=== PATIENT | female | born 1955 | race Caucasian/White ===

== ENCOUNTER 2019-10-08 15:56 | Emergency (ER) | payer SELFPAY | END 2019-10-08 16:09 | disposition home or self-care (01) | LOC: ER 16:09 | PROVIDERS: Family Provider Radiology Diagnostic Radiology | DX: Z01.89 Encounter for other specified special examinations (principal) ==

== ENCOUNTER → 2019-10-12 08:57 | Outpatient (BNVA) | payer SELFPAY | PROVIDERS: Family Provider Radiology Diagnostic Radiology; Visit Provider Otolaryngology | DX: H81.10 Benign paroxysmal vertigo, unspecified ear (principal) | CPT/HCPCS: 99203 ==

== ENCOUNTER 2019-10-12 11:49 | Outpatient (RCR) | payer SELFPAY | END 2019-11-06 23:59 | disposition home or self-care (01) | LOC: SPT 11:49 | PROVIDERS: Family Provider Radiology Diagnostic Radiology; Referring Provider Otolaryngology; Visit Provider Otolaryngology | DX: R42 Dizziness and giddiness (principal) | CPT/HCPCS: 95992; 97162 ==

== ENCOUNTER 2019-11-23 10:25 | Emergency (ER) | payer SELFPAY ==
[2019-11-23] VITALS (12 sets, daily range): BP systolic 102–128; BP diastolic 41–77; PULSE 66–80; RESP 16–18; TEMP 36.6; O2SAT 93–98
--- NOTE | 2019-11-23 10:43 | US_ITS ---
WS: [id number] RIGHT UPPER QUADRANT ULTRASOUND HISTORY: RIGHT upper quadrant pain. COMPARISON: 01/13/2018 Liver: 14.3 cm in length. Mild coarsened echotexture with no bile duct dilatation or mass. Gallbladder: Normally distended gallbladder with no stones or wall thickening. CBD: 0.2 cm Pancreas: Normal size and echogenicity. Right kidney: 10.0 cm in length. Normal echogenicity with no mass or hydronephrosis. Aorta and IVC: Unremarkable. No ascites. US/US gall bladder [id number] IMPRESSION: 1. Normal gallbladder. 2. Mild hepatic steatosis.
--- NOTE | 2019-11-23 10:43 | XR_ITS ---
WS: [id number] PORTABLE CHEST HISTORY: dyspnea/cough COMPARISON: 01/16/2018 Lungs are clear and well expanded. No pleural effusion or pneumothorax. Cardiac size: Normal. Mediastinum/Aorta: Normal mediastinum. No osseous abnormality seen. XR/XR chest 1V portable [id number] IMPRESSION: Unremarkable portable chest.
--- NOTE | 2019-11-23 10:47 | W.ED.NAVMDI ---
Documented by User: Demarcus Chiu DO 11/24/19 09:22 HPI - Nausea/Vomiting/Diarrhea General: Chief complaint: Nausea/Vomiting/Diarrhea Stated complaint: N/V/D Time Seen by Provider: 11/23/19 10:37 History of Present Illness: HPI Narrative: 63-year-old female comes in complaining of abdominal pain with nausea vomiting and diarrhea for the last couple of days. She denies any fever sweats chills denies any difficulty with breathing she denies any dysuria urgency or frequency is not any hematochezia melena hematemesis or coffee-ground emesis. Localizes the pain to the epigastrium radiating to the right upper quadrant. Patient has worsening of symptoms when she eats. MD elicited complaint: nausea, vomiting and diarrhea Pertinent past history: abdominal surgery Onset (ago): day(s) Description of vomiting: bilious Associated nausea: Yes Location of pain: RUQ Radiation: RUQ and epigastric Quality: aching Exacerbating factors: eating Relieving factors: none Associated symtoms: Reports nausea; Denies bloating, chest pain, dysuria, fatigue or malaise Review of Systems Const: Denies: fever, chills, body aches, change in appetite, fatigue or malaise ENMT: Denies: throat pain, ear pain, nasal discharge or nasal congestion Card: Denies: chest pain, edema, shortness of breath on exertion or shortness of breath when lying down Resp: Denies: shortness of breath or productive cough GI: Reports: abdominal pain, nausea, vomiting and diarrhea; Denies: vomiting blood, coffee grounds in vomit, constipation, bloating, blood in stool or black tarry stool : Denies: flank pain, difficulty urinating, painful urination, urinary frequency or urinary urgency Skin/Breast: Denies: rash or itching PFSH ED PFSH: Medical History BPPV (benign paroxysmal positional vertigo) Family History Father Lung disease rheumatoid arthritis related Mother Alzheimer disease Son Autoimmune disease causing clotting problems, vascular Daughter Raynaud disease Rheumatoid arteritis Social History Smoking and tobacco status: never smoked Alcohol intake: current Alcohol intake frequency: holidays/special occasions only Physical Exam Const: COMMON NORMALS: no apparent distress GENERAL APPEARANCE: cooperative and comfortable ORIENTATION/CONSCIOUSNESS: Yes awake, Yes oriented to person, Yes oriented to place and Yes oriented to time HENMT: COMMON NORMALS: normocephalic, head/scalp atraumatic, hearing grossly normal bilaterally, external ears normal, EAC's normal, TM's normal bilaterally, nasal mucous membranes and turbinates normal, moist oral mucous membranes and oropharynx normal HEAD & SCALP: normocephalic and atraumatic NOSE: nasal mucous membranes and turbinates normal EXTERNAL EAR: Yes external ears normal EXTERNAL AUDITORY CANAL: EAC's normal TYMPANIC MEMBRANE: TM's normal bilaterally Eye: COMMON NORMALS: PERRL, EOMs intact bilaterally, conjunctivae normal and no scleral icterus CONJUNCTIVA: Yes conjunctivae normal PUPIL: Yes PERRL Neck/C-Spine: COMMON NORMALS: full ROM, no lymphadenopathy, supple and no JVD Lymph: LYMPHATIC: no lymphadenopathy noted and no lymphedema noted Resp: COMMON NORMALS: normal respiratory effort, no retractions, no use of accessory muscles and clear to auscultation bilaterally AUSCULTATION: clear to auscultation bilaterally Cardio: COMMON NORMALS: no JVD, regular rate, regular rhythm and no murmurs RATE: regular rate RHYTHM: regular rhythm GI: COMMON NORMALS: soft to palpation and no hepatosplenomegaly AUSCULTATION: Yes normoactive bowel sounds PALPATION: Yes soft, Yes tender, No guarding, No rigid and Yes no hepatosplenomegaly Extremity: COMMON NORMALS: normal to inspection, normal capillary refill, no clubbing, cyanosis or edema, no calf tenderness and no pedal edema Neuro: SENSORIUM/ORIENTATION: Yes oriented to person, Yes oriented to place and Yes oriented to time Skin: COMMON NORMALS: no rashes or lesions noted GENERAL SKIN EXAM: no rashes or lesions noted Course Vital Signs: Vital signs: Vital Signs Temperature 97.8 F 11/23/19 10:30 Pulse Rate 73 11/23/19 16:56 Respiratory Rate 16 11/23/19 16:56 Blood Pressure 128/70 11/23/19 16:56 Pulse Oximetry 96 11/23/19 16:56 MDM - Nausea/Vomiting/Diarrhea MDM Narrative: Medical decision making narrative: Patient initially seen by myself and labs ordered at change of shift care was transferred to Dr. Hoffmann. Please see her notes for final assessment disposition on this patient. Lab Data: Labs: Lab Results 11/23/19 11/23/19 11/23/19 Range/Units 11:02 11:02 12:32 WBC 5.2 (4.0-10.0) 10^3/ uL RBC 5.20 (4.1-5.3) 10^6/u L Hgb 13.5 (11.5-15.3) g/dL Hct 45.0 (37.0-47.0) % MCV 86.5 (81-99) fL MCH 26.0 L (28.0-34.0) pg MCHC 30.0 (30.0-36.0) g/dL RDW 13.3 (12.1-15.1) % Plt Count 320 (130-400) 10^3/c mm MPV 10.5 H (7.4-10.4) fL Neut % (Auto) 72.3 % Lymph % (Auto) 22.3 % [place] % (Auto) 4.2 % Eos % (Auto) 0.4 % Baso % (Auto) 0.6 % Neut # (Auto) 3.8 (1.8-7.7) 10^3/u L Lymph # (Auto) 1.2 (0.8-4.8) 10^3/u L [place] # (Auto) 0.2 (0.2-0.9) 10^3/u L Eos # (Auto) 0.0 (0.0-0.8) 10^3/u L Baso # (Auto) 0.0 (0.0-0.1) 10^3/u L Nucleated RBC % (a uto) 0 % Nucleated RBCs # 0.0 /100WBC Sodium 142 (136-145) mmol/L Potassium 3.6 (3.5-5.1) mmol/L Chloride 104 (98-107) mmol/L Carbon Dioxide 23 (22-29) mmol/L Anion Gap 18.6 (5-19) BUN 19 (8-23) mg/dL Creatinine 0.9 (0.5-0.9) mg/dL GFR Calculation 63.7 L (90-130) mL/min Glucose 118 H (65-115) mg/dL Calculated Osmolal ity 292 (285-295) mOsm/k g Calcium 10.1 (8.5-10.5) mg/dL Total Bilirubin 0.4 (0.15-1.2) mg/dL AST 22 (0-32) U/L ALT 27 (0-33) U/L Alkaline Phosphata se 125 H (35-105) IU/L Total Protein 6.8 (6.6-8.7) g/dL Albumin 4.5 (3.5-5.2) g/dL Globulin 2.3 (1.3-4.6) g/dL Lipase 10 L (13-60) U/L Urine Color Yellow (Yellow) Urine Appearance Clear (CLEAR) Urine pH 5 (5-7) Ur Specific Gravit y 1.025 (1.005-1.030) Urine Protein Neg (Negative) Urine Glucose (UA) Norm (Normal) Urine Ketones 1+ H (Negative) Urine Blood Neg (Negative) Urine Nitrate Negative (Negative) Urine Bilirubin Neg (NEGATIVE) Urine Urobilinogen Norm (Negative) mg/dL Ur Leukocyte Elis ase Negative (Negative) Discharge Plan Discharge Patient Disposition: Home, Self-Care Clinical Impression: Gastroenteritis Migraine Qualifiers: Migraine type: without aura Status migrainosus presence: without status migrainosus Intractability: not intractable Qualified Code(s): G43.009 - Migraine without aura, not intractable, without status migrainosus Condition: Stable Prescriptions: New promethazine 25 mg suppository 25 mg IL Q6H Qty: 1 RF: 0 No Action levothyroxine 88 mcg capsule 88 mcg PO DAILY RF: 0 potassium chloride 20 mEq tablet extended release 20 meq PO DAILY RF: 0 propranolol 60 mg tablet 60 mg PO DAILY RF: 0 rosuvastatin 5 mg tablet 5 mg PO DAILY RF: 0 yytqpms-vqbfdzjere-CUD-caff 69-60-696-40 mg capsule 1 cap PO Q4H MDD 6 tabs PRN (Reason: Headache) RF: 0 albuterol sulfate [ProAir HFA] 90 mcg/actuation HFA aerosol inhaler 2 puff INHALATION Q6H PRN (Reason: Shortness Of Breath) RF: 0 prednisone 10 mg Tablet 10 mg PO DAILY PRN (Reason: unknown) RF: 0 Flintstones Multivitamin Tablet,Chewable 1 tab PO DAILY RF: 0 Aspir-81 81 mg Tablet,Delayed Release (Dr/Ec) 81 mg PO DAILY RF: 0 Xanax 0.25 mg Tablet 0.25 mg PO DAILY PRN (Reason: Anxiety) RF: 0 hydrochlorothiazide 25 mg Tablet 25 mg PO DAILY RF: 0 losartan 100 mg Tablet 100 mg PO DAILY RF: 0 Macrobid 100 mg Capsule 100 mg PO BID RF: 0 Referrals: Maicol Bae MD [Family Provider] - Discharge Diet: Advance as tolerated and Clear Liquid Discharge Activity: Resume usual activity Patient Instructions: Headache - Migraine (Adult), Gastroenteritis (ED) Activity Restrictions/Additional Instructions: f/u with PCP in next 2-3 days (case management will set you up with pcp) return if worse, any problem, any change Discharge Date/Time: 11/23/19 16:56 Sign Out Sign Out Data: Patient Sign Out occurred on 11/23/19 at 12:35. Patient's care was discussed, and care was transferred from to Adele Tolliver DO. Coding Level of Care Code ED Metal Machine Operator for Chg Fwd Exam Comprehensive Documented by User: Adele Hoffmann DO 11/23/19 15:27 HPI - Nausea/Vomiting/Diarrhea General: Chief complaint: Nausea/Vomiting/Diarrhea Stated complaint: N/V/D Time Seen by Provider: 11/23/19 10:37 PFSH ED PFSH: Medical History BPPV (benign paroxysmal positional vertigo) Family History Father Lung disease rheumatoid arthritis related Mother Alzheimer disease Son Autoimmune disease causing clotting problems, vascular Daughter Raynaud disease Rheumatoid arteritis Social History Smoking and tobacco status: never smoked Alcohol intake: current Alcohol intake frequency: holidays/special occasions only Course Vital Signs: Vital signs: Vital Signs Temperature 97.8 F 11/23/19 10:30 Pulse Rate 73 11/23/19 16:56 Respiratory Rate 16 11/23/19 16:56 Blood Pressure 128/70 11/23/19 16:56 Pulse Oximetry 96 11/23/19 16:56 MDM - Nausea/Vomiting/Diarrhea MDM Narrative: Medical decision making narrative: I have accepted the pt in sign out from Dr Cihu. Dr Chiu stated he wanted a ct abd/pelvis which I have now ordered. 1342: pt states she is still having severe headache and that it woke her from sleep and that she is worried about it, I will order a ct head and give her more meds, states morphine helped some 1540: pts ct's are all normal along with her labs incluing urine and lipase ,us gb unremarkable, pt is now able to hold down some jello and water, she still has migraine and I will give her another dose of meds including morphine and phenergan and she states she thinks she will be better off if she goes home after that to rest. She knows to return if anything worsens, she will stick with a clear liquid diet and I will send her home with phenergan Lab Data: Attestation: I reviewed the patient's lab results. Labs: Lab Results 11/23/19 11/23/19 11/23/19 Range/Units 11:02 11:02 12:32 WBC 5.2 (4.0-10.0) 10^3/ uL RBC 5.20 (4.1-5.3) 10^6/u L Hgb 13.5 (11.5-15.3) g/dL Hct 45.0 (37.0-47.0) % MCV 86.5 (81-99) fL MCH 26.0 L (28.0-34.0) pg MCHC 30.0 (30.0-36.0) g/dL RDW 13.3 (12.1-15.1) % Plt Count 320 (130-400) 10^3/c mm MPV 10.5 H (7.4-10.4) fL Neut % (Auto) 72.3 % Lymph % (Auto) 22.3 % [place] % (Auto) 4.2 % Eos % (Auto) 0.4 % Baso % (Auto) 0.6 % Neut # (Auto) 3.8 (1.8-7.7) 10^3/u L Lymph # (Auto) 1.2 (0.8-4.8) 10^3/u L [place] # (Auto) 0.2 (0.2-0.9) 10^3/u L Eos # (Auto) 0.0 (0.0-0.8) 10^3/u L Baso # (Auto) 0.0 (0.0-0.1) 10^3/u L Nucleated RBC % (a uto) 0 % Nucleated RBCs # 0.0 /100WBC Sodium 142 (136-145) mmol/L Potassium 3.6 (3.5-5.1) mmol/L Chloride 104 (98-107) mmol/L Carbon Dioxide 23 (22-29) mmol/L Anion Gap 18.6 (5-19) BUN 19 (8-23) mg/dL Creatinine 0.9 (0.5-0.9) mg/dL GFR Calculation 63.7 L (90-130) mL/min Glucose 118 H (65-115) mg/dL Calculated Osmolal ity 292 (285-295) mOsm/k g Calcium 10.1 (8.5-10.5) mg/dL Total Bilirubin 0.4 (0.15-1.2) mg/dL AST 22 (0-32) U/L ALT 27 (0-33) U/L Alkaline Phosphata se 125 H (35-105) IU/L Total Protein 6.8 (6.6-8.7) g/dL Albumin 4.5 (3.5-5.2) g/dL Globulin 2.3 (1.3-4.6) g/dL Lipase 10 L (13-60) U/L Urine Color Yellow (Yellow) Urine Appearance Clear (CLEAR) Urine pH 5 (5-7) Ur Specific Gravit y 1.025 (1.005-1.030) Urine Protein Neg (Negative) Urine Glucose (UA) Norm (Normal) Urine Ketones 1+ H (Negative) Urine Blood Neg (Negative) Urine Nitrate Negative (Negative) Urine Bilirubin Neg (NEGATIVE) Urine Urobilinogen Norm (Negative) mg/dL Ur Leukocyte Elis ase Negative (Negative) Imaging Data^: US: Radiologist's impression: Signed Patient: Hi Franks #: [id number] : 8Acct#:[id number] Age/Sex: 63 / FADM Date: 11/23/19 Loc: ERRoom/Bed: Attending Dr: Ordering Provider/Ordering MD: Demarcus Chiu DO Date of Service: 11/23/19 Procedure(s): US gall bladder [id number] Accession Number(s): [id number] Report Number: [id number] WS: [id number] RIGHT UPPER QUADRANT ULTRASOUND HISTORY: RIGHT upper quadrant pain. COMPARISON: 01/13/2018 Liver: 14.3 cm in length. Mild coarsened echotexture with no bile duct dilatation or mass. Gallbladder: Normally distended gallbladder with no stones or wall thickening. CBD: 0.2 cm Pancreas: Normal size and echogenicity. Right kidney: 10.0 cm in length. Normal echogenicity with no mass or hydronephrosis. Aorta and IVC: Unremarkable. No ascites. US/US gall bladder [id number] IMPRESSION: 1. Normal gallbladder. 2. Mild hepatic steatosis. Dictated By:Idalia Shaffer DO Signed By:Idalia Shaffer DOSigned Date/Time:11/23/19 1128 CXR: Radiologist's impression: XRay Report Signed Patient: Hi Franks #: [id number] : 8At#:[id number] Age/Sex: 63 / FADM Date: 11/23/19 Loc: ERRoom/Bed: Attending Dr: Ordering Provider/Ordering MD: Demarcus Chiu DO Date of Service: 11/23/19 Procedure(s): XR chest 1V portable [id number] Accession Number(s): [id number] Report Number: [id number] WS: [id number] PORTABLE CHEST HISTORY: dyspnea/cough COMPARISON: 01/16/2018 Lungs are clear and well expanded. No pleural effusion or pneumothorax. Cardiac size: Normal. Mediastinum/Aorta: Normal mediastinum. No osseous abnormality seen. XR/XR chest 1V portable [id number] IMPRESSION: Unremarkable portable chest. Dictated By:Idalia Shaffer DO Signed By:Idalia Shaffer DOSigned Date/Time:11/23/[address] Head: Radiologist's impression: CT Scan Report Signed Patient: Hi Franks #: [id number] : 8Acct#:[id number] Age/Sex: 63 / FADM Date: 11/23/19 Loc: ERRoom/Bed: Attending Dr: Ordering Provider/Ordering MD: Adele Hoffmann DO Date of Service: 11/23/19 Procedure(s): CT head wo con* [id number] Accession Number(s): [id number] Report Number: [id number] WS: [id number] CT HEAD NONCONTRAST HISTORY: dizziness TECHNIQUE: Contiguous axial imaging performed through the brain in 2.5 mm imaging. Bone and soft tissue windows. Sagittal and coronal reformats reviewed. All CT scans at [facility] use at least one of these dose optimization techniques: automated exposure control; mA and/or kV adjustment per patient size (includes targeted exams where dose is matched to clinical indication); or iterative reconstruction. DLP: 839.72 mGy.cm COMPARISON: 12/26/2015 No acute intracranial hemorrhage, midline shift or mass effect. Mild atrophy and mild chronic ischemic disease. No progression since the prior study. Ventricles: Normal size with no hydrocephalus. No inferior displacement of cerebellar tonsils. Paranasal sinuses: As visualized are clear. Mastoid air cells: Well pneumatized. Calvarium and scalp: Skull is intact with no soft tissue edema or swelling. CT/CT head wo con* [id number] IMPRESSION: 1. No acute intracranial hemorrhage. 2. Stable noncontrast head CT. Dictated By:Idalia Shaffer DO Signed By:Idalia Shaffer DOSigned Date/Time:11/23/[address] Abd/Pel: Radiologist's impression: [address] [address] [address] Scan Report Signed Patient: Hi Franks #: [id number] : 8Acct#:[id number] Age/Sex: 63 / FADM Date: 11/23/19 Loc: ERRoom/Bed: Attending Dr: Ordering Provider/Ordering MD: Adele Hoffmann DO Date of Service: 11/23/19 Procedure(s): CT abdomen pelvis w con* [id number] Accession Number(s): [id number] Report Number: [id number] WS: [id number] CT ABDOMEN AND PELVIS WITH CONTRAST HISTORY: Abdomen pain, nausea vomiting and diarrhea. TECHNIQUE: Imaging performed of the abdomen and pelvis with IV contrast. Single phase imaging of the abdomen. Coronal and sagittal reformats are submitted. All CT scans at [facility] use at least one of these dose optimization techniques: automated exposure control; mA and/or kV adjustment per patient size (includes targeted exams where dose is matched to clinical indication); or iterative reconstruction. IV CONTRAST: Omnipaque 300; 95 mL IV. Oral contrast: No DLP: 1059.32 mGy.cm COMPARISON: 01/12/2018 Lower thorax: Linear atelectasis at the lung bases. Heart is normal size. Small hiatal hernia. Liver/biliary system: Diffuse hepatic steatosis. 3 mm hypodense nodule in the LEFT lobe is probably a small cyst, stable since 01/12/2018. Gallbladder: Normal. No gallstones or wall thickening. No pericholecystic fluid. Pancreas: Normal. Spleen: Normal. Adrenal glands: Normal. Right kidney: Normal size kidney. There are few too small to characterize hypodensities scattered throughout the cortex. No interval change. No enlarging solid mass. Left kidney: There are a few scattered cortical hypodensities. No solid mass or enlarging nodule. Aorta: Normal. Lymphadenopathy: None. Free fluid: None. GI tract: There are a few scattered diverticula throughout the colon. No evidence for acute diverticulitis or obstruction. The appendix has been removed. Abdominal wall: Small umbilical hernia contains fat only. Pelvis: Prior hysterectomy. Both ovaries are identified and small caliber. No free fluid or adenopathy. Bones: No destructive bone lesions. CT/CT abdomen pelvis w con* [id number] IMPRESSION: 1. Prior appendectomy and hysterectomy. 2. Hepatic steatosis. 3. No free fluid or free air. 4. Sigmoid diverticulosis without diverticulitis. Dictated By:Idalia Shaffer DO Signed By:Idalia Shaffer DOSigned Date/Time:11/23/19 1441 Discharge Plan Discharge Patient Disposition: Home, Self-Care Clinical Impression: Gastroenteritis Migraine Qualifiers: Migraine type: without aura Status migrainosus presence: without status migrainosus Intractability: not intractable Qualified Code(s): G43.009 - Migraine without aura, not intractable, without status migrainosus Condition: Stable Prescriptions: New promethazine 25 mg suppository 25 mg IL Q6H Qty: 1 RF: 0 No Action levothyroxine 88 mcg capsule 88 mcg PO DAILY RF: 0 potassium chloride 20 mEq tablet extended release 20 meq PO DAILY RF: 0 propranolol 60 mg tablet 60 mg PO DAILY RF: 0 rosuvastatin 5 mg tablet 5 mg PO DAILY RF: 0 sqwgltl-gzeszmwofa-MNT-caff 37-41-380-40 mg capsule 1 cap PO Q4H MDD 6 tabs PRN (Reason: Headache) RF: 0 albuterol sulfate [ProAir HFA] 90 mcg/actuation HFA aerosol inhaler 2 puff INHALATION Q6H PRN (Reason: Shortness Of Breath) RF: 0 prednisone 10 mg Tablet 10 mg PO DAILY PRN (Reason: unknown) RF: 0 Flintstones Multivitamin Tablet,Chewable 1 tab PO DAILY RF: 0 Aspir-81 81 mg Tablet,Delayed Release (Dr/Ec) 81 mg PO DAILY RF: 0 Xanax 0.25 mg Tablet 0.25 mg PO DAILY PRN (Reason: Anxiety) RF: 0 hydrochlorothiazide 25 mg Tablet 25 mg PO DAILY RF: 0 losartan 100 mg Tablet 100 mg PO DAILY RF: 0 Macrobid 100 mg Capsule 100 mg PO BID RF: 0 Referrals: Maicol Bae MD [Family Provider] - Discharge Diet: Advance as tolerated and Clear Liquid Discharge Activity: Resume usual activity Patient Instructions: Headache - Migraine (Adult), Gastroenteritis (ED) Activity Restrictions/Additional Instructions: f/u with PCP in next 2-3 days (case management will set you up with pcp) return if worse, any problem, any change Discharge Date/Time: 11/23/19 16:56 Sign Out Sign Out Data: Patient Sign Out occurred on 04/17/20 at 12:35. Patient's care was discussed, and care was transferred from to Adele Tolliver DO. Coding Level of Care Code ED Metal Machine Operator for [place] Fwd Exam Comprehensive
[2019-11-23 11:08] LABS: Basophils % 0.6 %; Eosinophils % 0.4 %; Hemoglobin 13.5 g/dL (11.5-15.3); Lymphocytes # 1.2 10^3/uL (0.8-4.8); Lymphocytes % 22.3 %; Mean Corpuscular Volume 86.5 fL (81-99); Mean Platelet Volume 10.5 fL (7.4-10.4); Monocytes # 0.2 10^3/uL (0.2-0.9); Monocytes % 4.2 %; Neutrophils # 3.8 10^3/uL (1.8-7.7); Neutrophils % 72.3 %; Nucleated Red Blood Cells % 0 %; Platelet Count 320 10^3/cmm (130-400); Red Cell Distribution Width 13.3 % (12.1-15.1); White Blood Count 5.2 10^3/uL (4.0-10.0)
[2019-11-23] MEDS: ondansetron 2 mg/ML SDV 2 mL 4 MG IVP (11:10)
[2019-11-23] MEDS: sodium chloride 0.9% 1,000 ML 999 ML IV (11:11)
[2019-11-23 11:28] LABS: Alanine Aminotransferase 27 U/L (0-33); Albumin Level 4.5 g/dL (3.5-5.2); Alkaline Phosphatase 125 IU/L (35-105); Anion Gap 18.6 (5-19); Aspartate Amino Transferase 22 U/L (0-32); Blood Urea Nitrogen 19 mg/dL (8-23); Calcium 10.1 mg/dL (8.5-10.5); Carbon Dioxide 23 mmol/L (22-29); Chloride 104 mmol/L (98-107); Globulin 2.3 g/dL (1.3-4.6); Glomerular Filtration Rate 63.7 mL/min (90-130); Glucose 118 mg/dL (65-115); Lipase 10 U/L (13-60); Osmolality Calculated 292 mOsm/kg (285-295); Potassium 3.6 mmol/L (3.5-5.1); Sodium 142 mmol/L (136-145); Total Bilirubin 0.4 mg/dL (0.15-1.2); Total Protein 6.8 g/dL (6.6-8.7)
[2019-11-23] MEDS: morphine 4 mg/mL SDV 1 mL IVP ×2 (12:46→15:49)
[2019-11-23 12:55] LABS: Add Urine Microscopic? NO
[2019-11-23 13:08] LABS: Bilirubin Urine Neg (NEGATIVE); Blood Urine Neg (Negative); Glucose Urine UA Norm (Normal); Ketones Urine 1+ (Negative); Leukocyte Esterase Urine Negative (Negative); Nitrate Urine Negative (Negative); Protein Urine Neg (Negative); Specific Gravity, Urine 1.025 (1.005-1.030); Urine Appearance Clear (CLEAR); Urine Color Yellow (Yellow); Urobilinogen Urine Norm (Negative); pH Urine 5 (5-7)
--- NOTE | 2019-11-23 13:16 | CT_ITS ---
WS: [id number] CT ABDOMEN AND PELVIS WITH CONTRAST HISTORY: Abdomen pain, nausea vomiting and diarrhea. TECHNIQUE: Imaging performed of the abdomen and pelvis with IV contrast. Single phase imaging of the abdomen. Coronal and sagittal reformats are submitted. All CT scans at [facility] use at least one of these dose optimization techniques: automated exposure control; mA and/or kV adjustment per patient size (includes targeted exams where dose is matched to clinical indication); or iterativ e reconstruction. IV CONTRAST: Omnipaque 300; 95 mL IV. Oral contrast: No DLP: 1059.32 mGy.cm COMPARISON: 01/12/2018 Lower thorax: Linear atelectasis at the lung bases. Heart is normal size. Small hiatal hernia. Liver/biliary system: Diffuse hepatic steatosis. 3 mm hypodense nodule in the LEFT lobe is probably a small cyst, stable since 01/12/2018. Gallbladder: Normal. No gallstones or wall thickening. No pericholecystic fluid. Pancreas: Normal. Spleen: Normal. Adrenal glands: Normal. Right kidney: Normal size kidney. There are few too small to characterize hypodensities scattered thr oughout the cortex. No interval change. No enlarging solid mass. Left kidney: There are a few scattered cortical hypodensities. No solid mass or enlarging nodule. Aorta: Normal. Lymphadenopathy: None. Free fluid: None. GI tract: There are a few scattered diverticula throughout the colon. No evidence for acute diverticu litis or obstruction. The appendix has been removed. Abdominal wall: Small umbilical hernia contains fat only. Pelvis: Prior hysterectomy. Both ovaries are identified and small caliber. No free fluid or adenopath y. Bones: No destructive bone lesions. CT/CT abdomen pelvis w con* [id number] IMPRESSION: 1. Prior appendectomy and hysterectomy. 2. Hepatic steatosis. 3. No free fluid or free air. 4. Sigmoid diverticulosis without diverticulitis.
--- NOTE | 2019-11-23 13:41 | CT_ITS ---
WS: [id number] CT HEAD NONCONTRAST HISTORY: dizziness TECHNIQUE: Contiguous axial imaging performed through the brain in 2.5 mm imaging. Bone and soft tiss ue windows. Sagittal and coronal reformats reviewed. All CT scans at [facility] use at ast one of these dose optimization techniques: automated exposure control; mA and/or kV adjustment pe r patient size (includes targeted exams where dose is matched to clinical indication); or iterative r econstruction. DLP: 839.72 mGy.cm COMPARISON: 12/26/2015 No acute intracranial hemorrhage, midline shift or mass effect. Mild atrophy and mild chronic ischemic disease. No progression since the prior study. Ventricles: Normal size with no hydrocephalus. No inferior displacement of cerebellar tonsils. Paranasal sinuses: As visualized are clear. Mastoid air cells: Well pneumatized. Calvarium and scalp: Skull is intact with no soft tissue edema or swelling. CT/CT head wo con* [id number] IMPRESSION: 1. No acute intracranial hemorrhage. 2. Stable noncontrast head CT.
[2019-11-23] MEDS: fentaNYL 50 mcg/mL INJ 2mL 25 MCG IVP (14:01)
[2019-11-23] MEDS: iohexol 300 mg/mL 100 mL Btl IV (14:26)
[2019-11-23] MEDS: sodium chloride 0.9% 100 ML 400 ML (15:49)
[2019-11-23] MEDS: promethazine 25 mg/mL SDV 1 mL IV (15:49)
--- NOTE | 2019-11-26 11:26 | DCPLANNER ---
production team manager had message to speak with patient about getting established with a primary care physician. production team manager called the phone number [phone], there was no answer, and no voicemail set up. production team manager was unable to speak with patient at this time.
== END 2019-11-23 16:56 | disposition home or self-care (01) ==
PROVIDERS: Family Medicine; Emergency Provider Emergency Medicine; Family Provider Radiology Diagnostic Radiology
DX: K52.9 Noninfective gastroenteritis and colitis, unspecified (principal); G43.009 Migraine without aura, not intractable, without status migrainosus; R42 Dizziness and giddiness; R05 Cough
CPT/HCPCS: 12345; 36415; 70450; 71045; 74177; 76705; 80053; 81003; 83690; 85025; 96361; 96374; 96375; 96376; 99283; 99284; J2270; J2405; J2550; J3010; J7030; Q9967

== ENCOUNTER 2020-10-29 03:01 | Emergency (ER) | payer SELFPAY ==
[2020-10-29 03:10] VITALS: BP 130/85; PULSE 76; RESP 16; O2SAT 96; BMI 28.3
--- NOTE | 2020-10-29 03:13 | W.ED.GENADLT ---
HPI - General Adult General: Chief complaint: Nausea/Vomiting/Diarrhea Stated complaint: n/v, diarhea, sore throat Time Seen by Provider: 10/29/20 03:12 Source: patient Mode of arrival: ambulatory Limitations: no limitations History of Present Illness: HPI narrative: 64-year-old female complaining of nausea, vomiting, diarrhea, abdominal cramping and pain for several weeks. She is also had dysuria and difficulty urinating for several days. She has a history of chronic UTI, takes Macrobid daily. No fever. She does have a raw sore throat often, frequent heartburn. No hematemesis. She has had change in bowel habits over the past month, frequent loose stools with mucus etc. She is scheduled to have a CT abdomen pelvis done later today back in [place]. Onset (ago): day(s) Associated symptoms: Reports headache(s) and malaise; Deny chest pain, dyspnea, nausea, rash, palpitations or vomiting Review of Systems Const: Reports: fever(s), chills, body aches, change in appetite, fatigue, malaise and night sweats Eyes: Denies: change in vision, blurry vision or blind spots ENMT: Reports: throat pain and odynophagia; Denies: mouth pain, swelling of lips/tongue or oral sores Card: Reports: irregular heart rhythm; Denies: chest pain, palpitations, edema or lightheadedness Resp: Denies: dyspnea, productive cough, non-productive cough or wheezing GI: Denies: abdominal pain, nausea, vomiting or hematemesis : Reports: difficulty voiding, dysuria, urinary frequency and urinary hesitancy Musc: Denies: neck pain, back pain or extremity pain Skin/Breast: Denies: rash, pruritus or erythema Neuro: Reports: headache(s); Denies: numbness in extremities or weakness in extremities Psych: Reports: anxiety PFSH ED PFSH: Medical History (Updated 10/29/20 @ 05:59 by Soni Muhammad MD) BPPV (benign paroxysmal positional vertigo) Family History Father Lung disease rheumatoid arthritis related Mother Alzheimer disease Son Autoimmune disease causing clotting problems, vascular Daughter Raynaud disease Rheumatoid arteritis Social History (Reviewed 04/17/20 @ 10:52 by CHIQUITA Abel Smoking and tobacco status: never smoked Alcohol intake: current Alcohol intake frequency: holidays/special occasions only Physical Exam Const: COMMON NORMALS: no acute distress and average body habitus GENERAL APPEARANCE: cooperative and anxious; not ill appearing and not frail appearing HENMT: COMMON NORMALS: normocephalic and atraumatic HEAD & SCALP: normal to inspection, normocephalic and atraumatic FACE & SINUS: normal facial exam and face symmetric Eye: COMMON NORMALS: Equal, round and reactive pupils present, EOMs intact bilaterally, conjunctivae normal and no scleral icterus CONJUNCTIVA: Yes conjunctivae normal PUPIL: Yes Equal, round and reactive pupils present Chest: COMMONS NORMALS: normal inspection of the chest and normal palpation of entire chest wall Resp: COMMON NORMALS: normal respiratory effort EFFORT & INSPECTION: Yes able to speak in complete sentences, Yes symmetric chest movement, No tachypneic, No respiratory distress, No labored and No Actively coughing GI: COMMON NORMALS: Normal to inspection, nondistended, normoactive bowel sounds present, Soft to palpation, non-tender and No hepatosplenomegaly present INSPECTION: Yes abdominal distension AUSCULTATION: Yes normoactive bowel sounds PALPATION: Yes Soft to palpation, No Firmness to palpation present (GI), No Tenderness to palpation present (GI), Yes No hepatosplenomegaly present, No Hernia present, No Palpable mass present and No Pulsatile mass present : EXTERNAL FEMALE EXAM: No Hernia present Course Vital Signs: Vital signs: Vital Signs Pulse Rate 78 10/29/20 06:21 Respiratory Rate 18 10/29/20 06:21 Blood Pressure 118/78 10/29/20 06:21 Pulse Oximetry 98 10/29/20 06:21 MDM - General Adult MDM Narrative: Medical decision making narrative: 64 year old with ongoing N/V/D, abdominal pain, generalized weakness. labwork significant for hypokalemia, otherwise nml-given oral replacement. CT neg for any acute process. treated with IVF, antiemetics, The patient was quite upset during her time in the ED, felt that she was being treated poorly by nursing staff. In the end she left without completing her workup, including UA. I did discuss the importance of followup with her PCP to schedule further tests including colonoscopy given her recent bowel pattern changes. Also i advised her to stop taking HCTZ until she sees her PCP as it is probably worsening her hypokalemia, At the time of discharge, the patient was standing up, becoming angry and yelling at the staff. She was not in any respiratory distress. Medical Records: Attestation: I reviewed the patient's medical records. Lab Data: Attestation: I reviewed the patient's lab results. Labs: Lab Results 10/29/20 10/29/20 Range/Units 03:14 03:14 WBC 6.7 (4.0-10.0) 10^3/ uL RBC 5.04 (4.1-5.3) 10^6/u L Hgb 13.8 (11.5-15.3) g/dL Hct 42.7 (37.0-47.0) % MCV 84.7 (81-99) fL MCH 27.4 L (28.0-34.0) pg MCHC 32.3 (30.0-36.0) g/dL RDW 13.8 (12.1-15.1) % Plt Count 318 (130-400) 10^3/c mm MPV 10.7 H (7.4-10.4) fL Neut % (Auto) 56.6 % Lymph % (Auto) 30.0 % [place] % (Auto) 9.3 % Eos % (Auto) 3.1 % Baso % (Auto) 0.9 % Neut # (Auto) 3.77 (1.8-7.7) 10^3/u L Lymph # (Auto) 2.0 (0.8-4.8) 10^3/u L [place] # (Auto) 0.6 (0.2-0.9) 10^3/u L Eos # (Auto) 0.2 (0.0-0.8) 10^3/u L Baso # (Auto) 0.1 (0.0-0.1) 10^3/u L Nucleated RBC % (a uto) 0 % Nucleated RBCs # 0.0 /100WBC Sodium 142 (136-145) mmol/L Potassium 2.9 L (3.5-5.1) mmol/L Chloride 106 (98-107) mmol/L Carbon Dioxide 23 (22-29) mmol/L Anion Gap 15.9 (5-19) BUN 14 (8-23) mg/dL Creatinine 0.9 (0.5-0.9) mg/dL GFR Calculation 63.4 L (90-130) mL/min Glucose 117 H (65-115) mg/dL Calculated Osmolal ity 296 H (285-295) mOsm/k g Calcium 9.5 (8.5-10.5) mg/dL Magnesium 1.9 (1.7-2.3) mg/dL Total Bilirubin 0.5 (0.15-1.2) mg/dL AST 20 (0-32) U/L ALT 26 (0-33) U/L Alkaline Phosphata se 104 (35-105) IU/L Creatine Kinase 95 (26-192) U/L Total Protein 7.0 (6.6-8.7) g/dL Albumin 4.1 (3.5-5.2) g/dL Globulin 2.9 (1.3-4.6) g/dL TSH 1.39 (0.27-4.20) uIU/ mL Discharge Plan Discharge Patient Disposition: Left Against Medical Advice Clinical Impression: Abdominal pain Qualifiers: Abdominal location: generalized Qualified Code(s): R10.84 - Generalized abdominal pain Condition: Stable Prescriptions: No Action levothyroxine 88 mcg capsule 88 mcg PO DAILY RF: 0 potassium chloride 20 mEq tablet extended release 20 meq PO DAILY RF: 0 propranolol 60 mg tablet 60 mg PO DAILY RF: 0 rosuvastatin 5 mg tablet 5 mg PO DAILY RF: 0 [id number]-caff [id number] mg capsule 1 cap PO Q4H MDD 6 tabs PRN (Reason: Headache) RF: 0 albuterol sulfate [ProAir HFA] 90 mcg/actuation HFA aerosol inhaler 2 puff INHALATION Q6H PRN (Reason: Shortness Of Breath) RF: 0 prednisone 10 mg Tablet 10 mg PO DAILY PRN (Reason: unknown) RF: 0 Flintstones Multivitamin Tablet,Chewable 1 tab PO DAILY RF: 0 Aspir-81 81 mg Tablet,Delayed Release (Dr/Ec) 81 mg PO DAILY RF: 0 Xanax 0.25 mg Tablet 0.25 mg PO DAILY PRN (Reason: Anxiety) RF: 0 hydrochlorothiazide 25 mg Tablet 25 mg PO DAILY RF: 0 losartan 100 mg Tablet 100 mg PO DAILY RF: 0 Macrobid 100 mg Capsule 100 mg PO BID RF: 0 promethazine 25 mg suppository 25 mg SC Q6H Qty: 1 RF: 0 Referrals: Maicol Bae MD [Primary Care Provider] - Patient Instructions: Abdominal Pain (ED) Coding Level of Care Code ED Instructional Services Librarian for Chg Fwd Exam Detailed
[2020-10-29 03:30] LABS: Basophils # 0.1 10^3/uL (0.0-0.1); Basophils % 0.9 %; Eosinophils # 0.2 10^3/uL (0.0-0.8); Eosinophils % 3.1 %; Hematocrit 42.7 % (37.0-47.0); Hemoglobin 13.8 g/dL (11.5-15.3); Mean Corpuscular HGB Conc 32.3 g/dL (30.0-36.0); Mean Corpuscular Hemoglobin 27.4 pg (28.0-34.0); Mean Corpuscular Volume 84.7 fL (81-99); Mean Platelet Volume 10.7 fL (7.4-10.4); Monocytes # 0.6 10^3/uL (0.2-0.9); Monocytes % 9.3 %; Neutrophils # 3.77 10^3/uL (1.8-7.7); Neutrophils % 56.6 %; Nucleated Red Blood Cells % 0 %; Platelet Count 318 10^3/cmm (130-400); Red Blood Count 5.04 10^6/uL (4.1-5.3); Red Cell Distribution Width 13.8 % (12.1-15.1); White Blood Count 6.7 10^3/uL (4.0-10.0)
[2020-10-29 03:50] LABS: Alanine Aminotransferase 26 U/L (0-33); Albumin Level 4.1 g/dL (3.5-5.2); Alkaline Phosphatase 104 IU/L (35-105); Anion Gap 15.9 (5-19); Aspartate Amino Transferase 20 U/L (0-32); Blood Urea Nitrogen 14 mg/dL (8-23); Calcium 9.5 mg/dL (8.5-10.5); Carbon Dioxide 23 mmol/L (22-29); Chloride 106 mmol/L (98-107); Creatine Phosphokinase 95 U/L (26-192); Globulin 2.9 g/dL (1.3-4.6); Glomerular Filtration Rate 63.4 mL/min (90-130); Glucose 117 mg/dL (65-115); Magnesium 1.9 mg/dL (1.7-2.3); Osmolality Calculated 296 mOsm/kg (285-295); Sodium 142 mmol/L (136-145); Thyroid Stimulating Hormone 1.39 uIU/mL (0.27-4.20); Total Bilirubin 0.5 mg/dL (0.15-1.2)
[2020-10-29] MEDS: sodium chloride 0.9% 500 ML 999 ML IV ×3 (03:54→04:46)
[2020-10-29 04:13] LABS: Potassium 2.9 mmol/L (3.5-5.1)
[2020-10-29] MEDS: ondansetron 2 mg/ML SDV 2 mL 4 MG IVP (04:25)
--- NOTE | 2020-10-29 04:26 | CTR_ITS ---
PROCEDURE INFORMATION: Exam: CT Abdomen And Pelvis With Contrast Exam date and time: 10/29/2020 4:28 AM Age: 64 years old Clinical indication: Nausea and vomiting; Prior surgery; Surgery type: Appy. Hysterectomy. ; Patient HX: Persistent n/v/d. ; Additional info: Abdominal pain TECHNIQUE: Imaging protocol: Computed tomography of the abdomen and pelvis with contrast. Radiation optimization: All CT scans at this facility use at least one of these dose optimization techniques: automated exposure control; mA and/or kV adjustment per patient size (includes targeted exams where dose is matched to clinical indication); or iterative reconstruction. Contrast material: OMNI 300; Contrast volume: 95 ml; Contrast route: INTRAVENOUS (IV); COMPARISON: CT abdomen pelvis w con* [id number] 11/23/2019 2:23 PM RADIATION DOSE METRICS: Total DLP (mGy-cm): 1473.94 FINDINGS: Liver: Fatty change is present in the liver. No mass. Gallbladder and bile ducts: Normal. No calcified stones. No ductal dilation. Pancreas: Normal. No ductal dilation. Spleen: Normal. No splenomegaly. Adrenal glands: Normal. No mass. Kidneys and ureters: Normal. No hydronephrosis. Stomach and bowel: Unremarkable. No obstruction. No mucosal thickening. Appendix: The appendix is not identified. Intraperitoneal space: Unremarkable. No free air. No significant fluid collection. Vasculature: Unremarkable. No abdominal aortic aneurysm. Lymph nodes: Unremarkable. No enlarged lymph nodes. Urinary bladder: Unremarkable as visualized. Reproductive: The uterus is surgically absent. Bones/joints: Degenerative changes are present. No acute fracture. Soft tissues: Unremarkable. CT/CT abdomen pelvis w con* [id number] IMPRESSION: No acute findings. Radiation Dose CTDIVOL = (mGy): DLP = 1473.94 (mGy-cm)
[2020-10-29 04:37] VITALS: PULSE 72; RESP 16; O2SAT 99
[2020-10-29] MEDS: iohexol 300 mg/mL 100 mL Btl IV (04:42)
[2020-10-29] MEDS: potassium chloride ER 20 mEq Tablet PO (04:49)
[2020-10-29] MEDS: potassium chloride oral liq 20 mEq/15 mL UDC 40 MEQ PO (04:49)
--- NOTE | 2020-10-29 05:40 | PC.NURSE ---
As I was walking by the physician dictation room I heard the patient's RN and the physician talking. CADEN Franco stated to the physician that he does not appreciate the way room 13 is talking to him. He stated she has no reason to talk to him that way, doesn't deserve it, and shouldn't have to put up with it. I was not aware of the patient, whom Cedrick was talking about, but as soon as I walked passed room 13 I heard the patient yell out, I can hear you out there talking about me you stupid mother fuckers! Nothing else was said about the patient. When over hearing Salvador's and the physician's conversation there was no breach in HIPAA. As the night went on the patient kept having random outburst but I was unable to fully understand what she was saying. As I noticed the warehouse lead standing outside the patient's room I could hear the patient yelling and cussing toward staff members. Multiple staff members tried to deescalate the situation but the patient continued with her aggressive behavior. Patient inevitably left AMA and her behavior continued up to the point of her absence.
[2020-10-29 05:42] VITALS: BP 110/64; PULSE 87; RESP 18; O2SAT 99
--- NOTE | 2020-10-29 06:14 | PC.NURSE ---
patient refused to give urine sample multiple times
[2020-10-29 06:21] VITALS: BP 118/78; PULSE 78; RESP 18; O2SAT 98
--- NOTE | 2020-10-29 06:30 | PC.NURSE ---
0540 - patient came out of room being aggressive toward staff, stating no one has taken care of her. Patient stated she was leaving and she would take her own IV out. Patient became increasingly more agitated and aggressive as she walked back to her exam room, she began yelling and cursing while in her exam room. She stated she has the right to ask about other patient's care and if there was a code coming in. While Dr. Muhammad attempted to reconcile the situation, patient began yelling loud enough staff at the nurses station could hear her. Patient threatened to call Saran Jolley because she pain thousands of dollars for this visit and no one cares about her. Patient then left AMA
--- NOTE | 2020-10-29 06:35 | PC.NURSE ---
Addendum entered by Graciela Curtis RN 10/29/20 06:51: Patient left AMA Original Note: Was in another room when this nurse overheard patient yelling and cussing at Dr. Muhammad and warehouse stock clerk. When going down the lubin to take a specimen into lab this nurse overheard patient stating that nobody has taken care of me, nobody has listened to my complaints, I don't want to pay for a hospital bill, and that I will be contacting Saran Muhammad, Robotic Welding Operator, patient, and patient where all in room.
== END 2020-10-29 06:24 | disposition left against medical advice (07) ==
PROVIDERS: Emergency Provider Family Medicine; PCP Radiology Diagnostic Radiology
DX: R10.84 Generalized abdominal pain (principal); Z53.21 Procedure and treatment not carried out due to patient leaving prior to being seen by health care provider; Z79.82 Long term (current) use of aspirin
CPT/HCPCS: 74177; 80053; 82550; 83735; 84443; 85025; 96374; 99284; J2405; J7040; Q9967

== ENCOUNTER 2023-06-09 07:31 | Outpatient (CLI) | payer MEDICARE, SELFPAY ==
[2023-06-09 08:27] LABS: Basophils # 0.1 10^3/uL (0.0-0.1); Basophils % 0.7 %; Eosinophils # 0.1 10^3/uL (0.0-0.8); Eosinophils % 1.9 %; Hematocrit 39.3 % (36-47); Lymphocytes # 2.3 10^3/uL (0.8-4.8); Lymphocytes % 31.2 %; Mean Corpuscular HGB Conc 30.5 g/dL (30-55); Mean Corpuscular Hemoglobin 27.9 pg (27-33); Mean Corpuscular Volume 91.4 fl (85-98); Mean Platelet Volume 10.1 fL (7.4-10.4); Monocytes # 0.5 10^3/uL (0.2-0.9); Monocytes % 6.6 %; Neutrophils # 4.38 10^3/uL (1.8-7.7); Neutrophils % 59.2 %; Nucleated Red Blood Cells % 0 %; Platelet Count 361 10^3/cmm (157-399); Red Cell Distribution Width 15.4 % (12.1-15.1)
[2023-06-09 08:53] LABS: Alanine Aminotransferase 36 U/L (0-33); Albumin Level 4.1 g/dL (3.5-5.2); Alkaline Phosphatase 100 U/L (35-105); Anion Gap 13.2 (5-19); Aspartate Amino Transferase 19 U/L (0-32); Blood Urea Nitrogen 16 mg/dL (8-23); Calcium 9.6 mg/dL (8.5-10.5); Carbon Dioxide 27 mmol/L (22-29); Chloride 103 mmol/L (98-107); Globulin 2.8 g/dL (1.3-4.6); Glucose 79 mg/dL (65-115); Osmolality Calculated 290 mOsm/kg (285-295); Potassium 3.2 mmol/L (3.5-5.1); Sodium 140 mmol/L (136-145); Total Bilirubin 0.4 mg/dL (0.15-1.2); Total Protein 6.9 g/dL (6.6-8.7)
== END 2023-06-09 07:32 | disposition home or self-care (01) ==
LOC: LAB 07:40
PROVIDERS: PCP Radiology Diagnostic Radiology; Visit Provider Hospitalist
DX: M06.9 Rheumatoid arthritis, unspecified (principal)
CPT/HCPCS: 36415; 80053; 85025

== ENCOUNTER 2023-07-26 11:44 | Emergency (ER) | payer MEDICARE, SELFPAY ==
[2023-07-26 11:45] VITALS: BP 116/71; PULSE 80; TEMP 36.6; O2SAT 99
--- NOTE | 2023-07-26 11:55 | CT_ITS ---
WS: [id number] CT ABDOMEN PELVIS TECHNIQUE: Contrast-enhanced CT of the abdomen and pelvis with coronal and sagittal reformatted image s. CLINICAL INFORMATION: lower abdominal pain, diarrhea COMPARISON: 10/29/2020 DLP: 509.[address] scans at [facility] use at least one of these dose optimization techniques: automated e xposure control; mA and/or kV adjustment per patient size (includes targeted exams where dose is matc hed to clinical indication); or iterative reconstruction. FINDINGS: Prior hysterectomy and appendectomy. Sigmoid diverticulosis. Low-lying cecum in the pelvis. Slight in flammatory stranding and edema about the LEFT colon with submucosal enhancement suspicious for coliti s. A few diverticuli in the sigmoid colon with suggestion of mild diverticulitis. No drainable absces s or fluid collection. Mild diffuse fatty infiltration of the liver. Normal portal vein and splenic vein. Normal spleen. Nor mal GE junction. Air-fluid level in the stomach. Adrenal glands are normal. Normal renal parenchymal enhancement. No hydronephrosis. A few incidental renal cysts. Mild fatty atrophy of the pancreas. Nor mal caliber abdominal aorta. Tiny fat-containing umbilical hernia. IMPRESSION: 1. Sigmoid diverticulosis with slight surrounding induration suspicious for mild acute diverticuliti s. No abscess or fluid collection. 2. LEFT descending colon is decompressed extending from the splenic flexure to the sigmoid colon wit h submucosal enhancement. Small amount of surrounding induration. Consider infectious or inflammatory colitis. 3. Mild diffuse fatty infiltration of the liver. 4. No hydronephrosis in either kidney. 5. Prior hysterectomy and appendectomy. 6. No other acute findings. Notified CARLOTTA Romo at 07/26/2023 2:17 PM.
--- NOTE | 2023-07-26 11:55 | W.ED.ABDPA2 ---
HPI - Abdominal Pain General: Chief Complaint: Abdominal Pain Stated Complaint: Abd Pain Time Seen by Provider: 07/26/23 11:47 Source: patient and EMS Mode of arrival: EMS Limitations: no limitations History of Present Illness: Patient is a 67-year-old female with an extensive past medical history including a longstanding list of chronic medical problems that she attributes to an autoimmune disease. Patient states she does have a research tech that she sees. Patient states she woke up this morning with severe lower abdominal pain and cramping as well as diffuse diarrhea. She has not been running fevers. She did feel nauseous this morning and took a Zofran which seemed to help. When asked about recent antibiotic use she tells me she is chronically on Macrobid for UTIs as well as Clarithromycin for chronic sinusitis. She states she has been on both of these antibiotics daily for over a decade. She is on chronic steroid use. MD elicited complaint: abdominal pain Onset (ago): hour(s) Pain Consistency: constant Location: Other (across lower abdomen ) Severity: severe Quality: cramping Radiation: none Migration to: no migration Exacerbating factors: nothing Relieving factors: nothing Associated Symptoms: Reports diarrhea and nausea; Denies chills, dysuria, fever(s), heartburn, hematochezia, hematemesis, melena and vomiting Related Data: Patient : No Review of Systems Const: Denies: fever(s), chills, body aches, fatigue or malaise Card: Denies: chest pain Resp: Denies: dyspnea GI: Reports: abdominal pain, nausea and diarrhea; Denies: vomiting, hematemesis, heartburn, hematochezia or melena : Reports: other (reports chronic UTIs); Denies: flank pain, difficulty voiding, dysuria, urinary frequency, urinary urgency or urinary hesitancy Musc: Denies: neck pain, back pain, extremity pain, extremity swelling or joint pain Skin/Breast: Denies: rash Neuro: Denies: headache(s), numbness in extremities, weakness in extremities, sensory changes or dizziness PFS ED PFSH: Medical History Viral syndrome URI with cough and congestion Hypertension Acute rheumatoid arthritis Chronic UTI (urinary tract infection) Vertigo Surgical History History of elbow surgery closed reduction of left elbow History of appendectomy History of abdominal hysterectomy History of tubal ligation History of sinus surgery septum surgery and turbinate reduction History of thyroidectomy Family History Father Lung disease rheumatoid arthritis related Mother Alzheimer disease Son Autoimmune disease causing clotting problems, vascular Daughter Raynaud disease Rheumatoid arteritis Social History Smoking and tobacco/nicotine status: never used tobacco/nicotine Alcohol intake: current Alcohol intake frequency: holidays/special occasions only Substance/Drug Use: never Physical Exam Const: COMMON NORMALS: no acute distress, average body habitus, patient oriented x3, no limitations, healthy appearing, alert and well nourished GENERAL APPEARANCE: cooperative ORIENTATION/CONSCIOUSNESS: Yes awake, Yes oriented to person, Yes oriented to place and Yes oriented to time HENMT: COMMON NORMALS: normocephalic and atraumatic HEAD & SCALP: normal to inspection, normocephalic and atraumatic Eye: COMMON NORMALS: no scleral icterus Neck/C-Spine: COMMON NORMALS: full ROM, no lymphadenopathy, supple and no meningeal signs Chest: COMMONS NORMALS: normal inspection of the chest Resp: COMMON NORMALS: normal respiratory effort and clear to auscultation bilaterally AUSCULTATION: clear to auscultation bilaterally Cardio: COMMON NORMALS: regular rate and regular rhythm RATE: regular rate RHYTHM: regular rhythm GI: COMMON NORMALS: Normal to inspection, nondistended, normoactive bowel sounds present, Soft to palpation, No hepatosplenomegaly present and no masses INSPECTION: Yes normal to inspection AUSCULTATION: Yes normoactive bowel sounds PALPATION: Yes Soft to palpation, Yes Tenderness to palpation present (GI) (across lower abdomen ), No Guarding due to palpation present (GI), No Rigid due to palpation and Yes No hepatosplenomegaly present : COMMON NORMALS: Yes no CVA tenderness BLADDER/KIDNEY EXAM: Yes no CVA tenderness Back/Pelvis: COMMON NORMALS: no CVA tenderness and thoracic and lumbar spine normal to inspection Extremity: COMMON NORMALS: normal to inspection, no clubbing, cyanosis or edema, no calf tenderness and no pedal edema GENERAL: Yes normal exam except as noted Neuro: PROSPER COMA SCALE: document GCS findings Prosper coma scale eye opening: Spontaneous Otto coma scale verbal response: Orientated Prosper coma scale motor response: Obey commands Prosper coma scale total score: 15 COMMON NORMALS: patient oriented x3, moves all extremities, no focal motor deficits and no sensory deficits noted SENSORIUM/ORIENTATION: Yes alert, Yes oriented to person, Yes oriented to place and Yes oriented to time MENINGEAL SIGNS: Yes no meningeal signs Skin: COMMON NORMALS: no rashes or lesions noted GENERAL SKIN EXAM: no rashes or lesions noted Course Vital Signs: Vital signs: Vital Signs Temperature 98 F 07/26/23 11:45 Pulse Rate 77 07/26/23 13:10 Respiratory Rate 18 07/26/23 13:10 Blood Pressure 108/68 07/26/23 13:10 Pulse Oximetry 97 07/26/23 13:10 Oxygen Delivery Me thod Room Air 07/26/23 11:45 MDM - Abdominal Pain Medical Decision Making Patient's vital signs are stable. Her blood work overall looks okay. She has a minor white count 14. Mild hypokalemia at 3.4. She does have potassium oral tablets at home she can begin taking. Remainder of chemistry is unremarkable. UA is nonspecific but does not look overly suspicious for infection. CT scan showing sigmoid diverticulitis as well as possible colitis. She will be placed on Cipro and Flagyl. Recommend follow-up with primary care later this week/early next week for reevaluation. Strict return ED precautions given. Lab Data 07/26/23 13:07 07/26/23 13:07 Labs/Radiology: Laboratory Results WBC 14.09 10^3/uL (3.29-11.43) H 07/26/23 13:07 RBC 4.84 10^6/uL (3.85-5.65) 07/26/23 13:07 Hgb 13.20 g/dL (11.27-16.99) 07/26/23 13:07 Hct 41.1 % (36-47) 07/26/23 13:07 MCV 84.9 fl (85-98) L 07/26/23 13:07 MCH 27.3 pg (27-33) 07/26/23 13:07 MCHC 32.1 g/dL (30-55) 07/26/23 13:07 RDW 14.4 % (12.1-15.1) 07/26/23 13:07 Plt Count 295 10^3/cmm (157-399) 07/26/23 13:07 MPV 10.6 fL (7.4-10.4) H 07/26/23 13:07 Neut % (Auto) 87.0 % 07/26/23 13:07 Lymph % (Auto) 7.2 % 07/26/23 13:07 [place] % (Auto) 4.1 % 07/26/23 13:07 Eos % (Auto) 1.1 % 07/26/23 13:07 Baso % (Auto) 0.3 % 07/26/23 13:07 Neut # (Auto) 12.26 10^3/uL (1.8-7.7) H 07/26/23 13:07 Lymph # (Auto) 1.0 10^3/uL (0.8-4.8) 07/26/23 13:07 [place] # (Auto) 0.6 10^3/uL (0.2-0.9) 07/26/23 13:07 Eos # (Auto) 0.2 10^3/uL (0.0-0.8) 07/26/23 13:07 Baso # (Auto) 0.0 10^3/uL (0.0-0.1) 07/26/23 13:07 Nucleated RBC % (auto) 0 % 07/26/23 13:07 Nucleated RBCs # 0.0 /100WBC 07/26/23 13:07 Sodium 139 mmol/L (136-145) 07/26/23 13:07 Potassium 3.4 mmol/L (3.5-5.1) L 07/26/23 13:07 Chloride 100 mmol/L (98-107) 07/26/23 13:07 Carbon Dioxide 27 mmol/L (22-29) 07/26/23 13:07 Anion Gap 15.4 (5-19) 07/26/23 13:07 BUN 15 mg/dL (8-23) 07/26/23 13:07 Creatinine 0.8 mg/dL (0.5-0.9) 07/26/23 13:07 GFR Calculation 72.0 mL/min (90-130) L 07/26/23 13:07 Glucose 152 mg/dL (65-115) H 07/26/23 13:07 Calculated Osmolality 292 mOsm/kg (285-295) 07/26/23 13:07 Calcium 10.1 mg/dL (8.5-10.5) 07/26/23 13:07 Total Bilirubin 0.4 mg/dL (0.15-1.2) 07/26/23 13:07 AST 21 U/L (0-32) 07/26/23 13:07 ALT 37 U/L (0-33) H 07/26/23 13:07 Alkaline Phosphatase 103 U/L (35-105) 07/26/23 13:07 Total Protein 6.9 g/dL (6.6-8.7) 07/26/23 13:07 Albumin 4.0 g/dL (3.5-5.2) 07/26/23 13:07 Globulin 2.9 g/dL (1.3-4.6) 07/26/23 13:07 Lipase 13 U/L (13-60) 07/26/23 13:07 Urine Color Dark yellow (Yellow) 07/26/23 13:31 Urine Appearance Clear (CLEAR) 07/26/23 13:31 Urine pH 5 (5-7) 07/26/23 13:31 Ur Specific [place] 1.020 (1.005-1.030) 07/26/23 13:31 Urine Protein Trace (Negative) 07/26/23 13:31 Urine Glucose (UA) Norm (Normal) 07/26/23 13:31 Urine Ketones 1+ (Negative) H 07/26/23 13:31 Urine Blood Trace (Negative) H 07/26/23 13:31 Urine Nitrate Negative (Negative) 07/26/23 13:31 Urine Bilirubin 1+ (Negative) H 07/26/23 13:31 Urine Urobilinogen 4 mg/dL (Negative) H 07/26/23 13:31 Ur Leukocyte Esterase Trace (Negative) H 07/26/23 13:31 Urine RBC 0-4 /hpf (0-2) H 07/26/23 13:31 Urine WBC 0-4 /hpf (0-5) H 07/26/23 13:31 Ur Squamous Epith Cells 0-4 /hpf (0-5) H 07/26/23 13:31 Amorphous Sediment Not Reportable 07/26/23 13:31 Urine Bacteria Trace /hpf (NONE) 07/26/23 13:31 Urine Mucus 1+ /hpf 07/26/23 13:31 All radiology interpretation(s) finalized by discharge Discharge Plan Discharge Patient Disposition: Home Clinical Impression: Diverticulitis Condition: Stable Prescriptions: New metronidazole 500 mg tablet 500 mg PO BID 7 Days Qty: 14 0RF Cipro 500 mg tablet 500 mg PO Q12H Qty: 14 0RF No Action nitrofurantoin monohyd/m-cryst [Macrobid] 100 mg capsule 100 mg PO BID Rx Instructions: must administer with a meal/food triamcinolone acetonide 0.1 % cream 1 applic topical BID Qty: 80 0RF levothyroxine 88 mcg capsule 88 mcg PO DAILY potassium chloride 20 mEq tablet extended release 20 meq PO DAILY propranolol 60 mg tablet 60 mg PO DAILY Rx Instructions: pt states she takes one tab on tue,tue, and tuesday rosuvastatin 5 mg tablet 5 mg PO DAILY Rx Instructions: pt states she takes one tab on ,,tue and tuesday [id number] [id number] mg capsule 1 cap PO Q4H MDD 6 tabs PRN (Reason: Headache) Rx Instructions: pt states she hasnt taken any for about 4-5 days albuterol sulfate [ProAir HFA] 90 mcg/actuation HFA aerosol inhaler 2 puff INHALATION Q6H PRN (Reason: Shortness Of Breath) clarithromycin 500 mg tablet 500 mg PO BID nitrofurantoin macrocrystal 100 mg capsule 100 mg PO DAILY Rx Instructions: must administer with a meal/food Flintstones Multivitamin Tablet,Chewable 1 tab PO DAILY Aspir-81 81 mg Tablet,Delayed Release (Dr/Ec) 81 mg PO DAILY Rx Instructions: pt states she only takes when she thinks she needs them hydrochlorothiazide 25 mg Tablet 25 mg PO DAILY Rx Instructions: pt states she takes 12.5mg daily losartan 100 mg Tablet 100 mg PO DAILY Rx Instructions: pt states she takes 50mg po daily Discharge Orders: Discharge ED (Routine); Ordered 07/26/23 Ordered By: Shanae Graves Referrals: Maicol Bae MD [Primary Care Provider] - Patient Instructions: Diverticulitis (DC), Colitis (ED) Activity Restrictions/Additional Instructions: As we discussed your prescriptions have been E scripted to [facility]. You may take your potassium tablets that you have at home as directed over the next 3 days as your potassium was scantly low today. You were unable to give us a stool sample unfortunately. We discussed your CT findings. You need to return to the emergency department for worsening abdominal pain, worsening diarrhea, repetitive episodes of vomiting, inability to hold down your antibiotics, fevers, any other concerns you may have. I hope you begin to feel better soon. As we discussed I would like you to follow-up with your primary care provider later this week/early next week for reevaluation. 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
[2023-07-26 13:10] VITALS: BP 108/68; PULSE 77; RESP 18; O2SAT 97
[2023-07-26 13:22] LABS: Basophils % 0.3 %; Eosinophils # 0.2 10^3/uL (0.0-0.8); Eosinophils % 1.1 %; Hematocrit 41.1 % (36-47); Lymphocytes % 7.2 %; Mean Corpuscular HGB Conc 32.1 g/dL (30-55); Mean Corpuscular Hemoglobin 27.3 pg (27-33); Mean Corpuscular Volume 84.9 fl (85-98); Mean Platelet Volume 10.6 fL (7.4-10.4); Monocytes # 0.6 10^3/uL (0.2-0.9); Monocytes % 4.1 %; Neutrophils # 12.26 10^3/uL (1.8-7.7); Nucleated Red Blood Cells % 0 %; Platelet Count 295 10^3/cmm (157-399); Red Blood Count 4.84 10^6/uL (3.85-5.65); Red Cell Distribution Width 14.4 % (12.1-15.1); White Blood Count 14.09 10^3/uL (3.29-11.43)
[2023-07-26 13:38] LABS: Alanine Aminotransferase 37 U/L (0-33); Alkaline Phosphatase 103 U/L (35-105); Anion Gap 15.4 (5-19); Aspartate Amino Transferase 21 U/L (0-32); Blood Urea Nitrogen 15 mg/dL (8-23); Calcium 10.1 mg/dL (8.5-10.5); Carbon Dioxide 27 mmol/L (22-29); Chloride 100 mmol/L (98-107); Globulin 2.9 g/dL (1.3-4.6); Glucose 152 mg/dL (65-115); Lipase 13 U/L (13-60); Osmolality Calculated 292 mOsm/kg (285-295); Potassium 3.4 mmol/L (3.5-5.1); Sodium 139 mmol/L (136-145); Total Bilirubin 0.4 mg/dL (0.15-1.2); Total Protein 6.9 g/dL (6.6-8.7)
[2023-07-26] MEDS: iohexol 350 mg/mL 500 mL Btl (per mL) IV (13:58)
[2023-07-26 13:59] LABS: Add Urine Microscopic? YES; Bilirubin Urine 1+ (Negative); Blood Urine Trace (Negative); Glucose Urine UA Norm (Normal); Ketones Urine 1+ (Negative); Leukocyte Esterase Urine Trace (Negative); Nitrate Urine Negative (Negative); Protein Urine Trace (Negative); Urine Appearance Clear (CLEAR); Urine Color Dark Yellow (Yellow); Urobilinogen Urine 4 mg/dL (Negative); pH Urine 5 (5-7)
[2023-07-26 14:00] LABS: Add Urine Culture? No; Bacteria Urine TRACE /hpf; Mucus Urine 1+ /hpf; RBC Urine 0-4 /hpf (0-2); Squamous Epithelial Cell Urine 0-4 /hpf (0-5); WBC Urine 0-4 /hpf (0-5)
== END 2023-07-26 15:58 | disposition home or self-care (01) ==
PROVIDERS: Emergency Provider Physician Assistant; PCP Radiology Diagnostic Radiology
DX: K57.92 Diverticulitis of intestine, part unspecified, without perforation or abscess without bleeding (principal); Z79.82 Long term (current) use of aspirin; I10 Essential (primary) hypertension
CPT/HCPCS: 74177; 80053; 81001; 83690; 85025; 99285; Q9967

== ENCOUNTER 2024-01-15 18:50 | Emergency (ER) | payer MEDICARE, SELFPAY ==
[2024-01-15 19:01] VITALS: BP 141/85; PULSE 75; RESP 18; TEMP 36.6; O2SAT 96; BMI 29.2
--- NOTE | 2024-01-15 19:11 | XRR_ITS ---
PROCEDURE INFORMATION: Exam: XR Chest Exam date and time: 01/15/2024 7:53 PM Age: 68 years old Clinical indication: Angina pectoris; Patient HX: Chest pain TECHNIQUE: Imaging protocol: Radiologic exam of the chest. Views: 1 view. COMPARISON: CR XR chest 1V portable [id number] 11/23/2019 11:43 AM FINDINGS: Lungs: No focal consolidation. Pleural spaces: No evidence of pneumothorax. No evidence of pleural effusion. Heart/Mediastinum: Cardiomediastinal silhouette is within normal limits. Bones/joints: No evidence of acute osseous abnormality. XR/XR chest 1V portable [id number] IMPRESSION: 1. No acute cardiopulmonary abnormality.
--- NOTE | 2024-01-15 19:11 | ECG_ITS ---
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 Measurements Intervals [place] Rate: 73 P: 30 PA: 194 QRS: 20 QRSD: 98 T: 73 QT: 395 QTc: 436 Interpretive Statements SINUS RHYTHM NONSPECIFIC T-WAVE ABNORMALITY Compared to ECG 01/12/2018 16:48:00 No significant changes Electronically Signed On 01-15-2024 20:30:20 CDT by Marcos Santiago M.D. [id number]
[2024-01-15 19:30] VITALS: BP 123/79; PULSE 69; RESP 18; O2SAT 98
--- NOTE | 2024-01-15 19:52 | W.ED.CHESTPA ---
HPI - Chest Pain General: Chief Complaint: Chest Pain Stated Complaint: Chest Pains Time Seen by Provider: 01/15/24 19:10 History of Present Illness: Patient presents to the ER today with complaints of chest tightness intermittent shortness of breath and panic attacks. Patient states she only gets these after taking her evening medicine and has been getting these for about the last week. Patient believes it is her medicine patient does not have a history of these before. There is no recent medicine changes other than an increase in her fentanyl patch. Patient states she does have pancreatic cancer gnosis terminal. Review of Systems General: Reports: 10 or more systems reviewed and unremarkable except in HPI and below PFSH ED PFSH: Medical History Viral syndrome URI with cough and congestion Hypertension Acute rheumatoid arthritis Chronic UTI (urinary tract infection) Vertigo Surgical History History of elbow surgery closed reduction of left elbow History of appendectomy History of abdominal hysterectomy History of tubal ligation History of sinus surgery septum surgery and turbinate reduction History of thyroidectomy Family History Father Lung disease rheumatoid arthritis related Mother Alzheimer disease Son Autoimmune disease causing clotting problems, vascular Daughter Raynaud disease Rheumatoid arteritis Social History Smoking and tobacco/nicotine status: never used tobacco/nicotine Alcohol intake: current Alcohol intake frequency: holidays/special occasions only Substance/Drug Use: never Physical Exam Const: COMMON NORMALS: no acute distress, average body habitus, patient oriented x3, no limitations, healthy appearing, alert and well nourished HENMT: COMMON NORMALS: normocephalic, atraumatic, hearing grossly normal bilaterally, external ears normal, Normal external nose present and moist oral mucous membranes HEAD & SCALP: normocephalic and atraumatic NOSE: Normal external nose present EXTERNAL EAR: Yes external ears normal Neck/C-Spine: COMMON NORMALS: no JVD Chest: COMMONS NORMALS: normal inspection of the chest and normal palpation of entire chest wall Resp: COMMON NORMALS: normal respiratory effort, No retractions, No use of accessory muscles and clear to auscultation bilaterally AUSCULTATION: clear to auscultation bilaterally Cardio: COMMON NORMALS: no JVD, regular rate, regular rhythm, S1 normal heart sound present, S2 normal heart sound present, No gallops present (Cardio), No clicks present (Cardio), No murmurs present (Cardio) and No rub (Cardio) RATE: regular rate RHYTHM: regular rhythm HEART SOUNDS: S1 normal heart sound present and S2 normal heart sound present GI: COMMON NORMALS: Normal to inspection, nondistended, normoactive bowel sounds present, Soft to palpation, non-tender, No hepatosplenomegaly present and no masses PALPATION: Yes Soft to palpation and Yes No hepatosplenomegaly present Neuro: COMMON NORMALS: patient oriented x3 SENSORIUM/ORIENTATION: Yes alert Course Vital Signs: Vital signs: Vital Signs Temperature 97.9 F 01/15/24 19:01 Pulse Rate 71 01/15/24 20:33 Respiratory Rate 14 01/15/24 20:33 Blood Pressure 117/71 01/15/24 20:33 Pulse Oximetry 95 01/15/24 20:33 Oxygen Delivery Me thod Room Air 01/15/24 20:33 MDM - Chest Pain Medical Decision Making Lab work was obtained which is essentially unremarkable other than potassium being chronically mildly low at 3.3, baseline troponin was 8 EKG was no acute changes, urinalysis was negative, chest x-ray was negative, upon reexamination patient is feeling better. Upon lengthy discussion with the patient it may appear that it might be her amitriptyline causing her increased anxiety this relating to causing panic attacks and causing chest pain. She was instructed to stop this medicine and call her family practitioner tomorrow for further instruction. Patient understood this and agreed to this. Patient be discharged from the ER. Differential Diagnosis Unlikely acute massive pulmonary embolism, acute respiratory failure, acute myocardial infarction, cardiac arrest or sudden cardiac Medical Records I reviewed the patient's medical records. Lab Data I reviewed the patient's lab results. 01/15/24 19:54 01/15/24 19:54 Laboratory Results WBC 8.20 10^3/uL (3.29-11.43) 01/15/24 19:54 RBC 4.67 10^6/uL (3.85-5.65) 01/15/24 19:54 Hgb 12.60 g/dL (11.27-16.99) 01/15/24 19:54 Hct 38.5 % (36-47) 01/15/24 19:54 MCV 82.4 fl (85-98) L 01/15/24 19:54 MCH 27.0 pg (27-33) 01/15/24 19:54 MCHC 32.7 g/dL (30-55) 01/15/24 19:54 RDW 13.7 % (12.1-15.1) 01/15/24 19:54 Plt Count 339 10^3/cmm (157-399) 01/15/24 19:54 MPV 9.9 fL (7.4-10.4) 01/15/24 19:54 Neut % (Auto) 64.4 % 01/15/24 19:54 Lymph % (Auto) 23.2 % 01/15/24 19:54 [place] % (Auto) 8.4 % 01/15/24 19:54 Eos % (Auto) 3.2 % 01/15/24 19:54 Baso % (Auto) 0.6 % 01/15/24 19:54 Neut # (Auto) 5.28 10^3/uL (1.8-7.7) 01/15/24 19:54 Lymph # (Auto) 1.9 10^3/uL (0.8-4.8) 01/15/24 19:54 [place] # (Auto) 0.7 10^3/uL (0.2-0.9) 01/15/24 19:54 Eos # (Auto) 0.3 10^3/uL (0.0-0.8) 01/15/24 19:54 Baso # (Auto) 0.1 10^3/uL (0.0-0.1) 01/15/24 19:54 Nucleated RBC % (auto) 0 % 01/15/24 19:54 Nucleated RBCs # 0.0 /100WBC 01/15/24 19:54 Sodium 139 mmol/L (136-145) 01/15/24 19:54 Potassium 3.3 mmol/L (3.5-5.1) L 01/15/24 19:54 Chloride 100 mmol/L (98-107) 01/15/24 19:54 Carbon Dioxide 25 mmol/L (22-29) 01/15/24 19:54 Anion Gap 17.3 (5-19) 01/15/24 19:54 BUN 14 mg/dL (8-23) 01/15/24 19:54 Creatinine 0.7 mg/dL (0.5-0.9) 01/15/24 19:54 GFR Calculation 83.7 mL/min (90-130) L 01/15/24 19:54 Glucose 131 mg/dL (65-115) H 01/15/24 19:54 Calculated Osmolality 290 mOsm/kg (285-295) 01/15/24 19:54 Calcium 9.8 mg/dL (8.5-10.5) 01/15/24 19:54 Total Bilirubin 0.3 mg/dL (0.15-1.2) 01/15/24 19:54 AST 13 U/L (0-32) 01/15/24 19:54 ALT 16 U/L (0-33) 01/15/24 19:54 Alkaline Phosphatase 99 U/L (35-105) 01/15/24 19:54 Troponin T Baseline 8 ng/L (0-10) 01/15/24 19:54 Total Protein 7.0 g/dL (6.6-8.7) 01/15/24 19:54 Albumin 4.5 g/dL (3.5-5.2) 01/15/24 19:54 Globulin 2.5 g/dL (1.3-4.6) 01/15/24 19:54 HCG, Qual Negative (Negative) 01/15/24 20:46 Urine Color Yellow (Yellow) 01/15/24 20:46 Urine Appearance Clear (CLEAR) 01/15/24 20:46 Urine pH 7 (5-7) 01/15/24 20:46 Ur Specific [place] 1.010 (1.005-1.030) 01/15/24 20:46 Urine Protein Neg (Negative) 01/15/24 20:46 Urine Glucose (UA) Norm (Normal) 01/15/24 20:46 Urine Ketones Negative (Negative) 01/15/24 20:46 Urine Blood Neg (Negative) 01/15/24 20:46 Urine Nitrate Negative (Negative) 01/15/24 20:46 Urine Bilirubin Neg (Negative) 01/15/24 20:46 Urine Urobilinogen Neg mg/dL (Negative) 01/15/24 20:46 Ur Leukocyte Esterase Negative (Negative) 01/15/24 20:46 All radiology interpretation(s) finalized by discharge EKG Data EKG 1: I personally reviewed and interpreted this EKG as follows: EKG interpretation date: 01/15/24 EKG interpretation time: 18:55 Interpretation: Ventricular rate 73 bpm, SC interval 194, QRS duration 98, QTc of 420, sinus rhythm Discharge Plan Discharge Patient Disposition: Home Clinical Impression: Atypical chest pain, Anxiety Adverse effects of medication Qualifiers: Encounter type: initial encounter Qualified Code(s): T50.905A - Adverse effect of unspecified drugs, medicaments and biological substances, initial encounter Condition: Stable Prescriptions: No Action nitrofurantoin monohyd/m-cryst [Macrobid] 100 mg capsule 100 mg PO BID Rx Instructions: must administer with a meal/food triamcinolone acetonide 0.1 % cream 1 applic topical BID Qty: 80 0RF levothyroxine 88 mcg capsule 88 mcg PO DAILY potassium chloride 20 mEq tablet extended release 20 meq PO DAILY propranolol 60 mg tablet 60 mg PO DAILY Rx Instructions: pt states she takes one tab on tue,tue, and tuesday rosuvastatin 5 mg tablet 5 mg PO DAILY Rx Instructions: pt states she takes one tab on ,,tue and tuesday [id number]-caff [id number] mg capsule 1 cap PO Q4H MDD 6 tabs PRN (Reason: Headache) Rx Instructions: pt states she hasnt taken any for about 4-5 days albuterol sulfate [ProAir HFA] 90 mcg/actuation HFA aerosol inhaler 2 puff INHALATION Q6H PRN (Reason: Shortness Of Breath) clarithromycin 500 mg tablet 500 mg PO BID nitrofurantoin macrocrystal 100 mg capsule 100 mg PO DAILY Rx Instructions: must administer with a meal/food Flintstones Multivitamin Tablet,Chewable 1 tab PO DAILY Aspir-81 81 mg Tablet,Delayed Release (Dr/Ec) 81 mg PO DAILY Rx Instructions: pt states she only takes when she thinks she needs them hydrochlorothiazide 25 mg Tablet 25 mg PO DAILY Rx Instructions: pt states she takes 12.5mg daily losartan 100 mg Tablet 100 mg PO DAILY Rx Instructions: pt states she takes 50mg po daily Cipro 500 mg tablet 500 mg PO Q12H Qty: 14 0RF Discharge Orders: Discharge ED (Routine); Ordered 01/15/24 Ordered By: John Medina Referrals: Gideon Bonner MD [Primary Care Provider] - 1 week Patient Instructions: Anxiety (ED), Chest Pain - Noncardiac Activity Restrictions/Additional Instructions: Your evaluation in the ER did not show any acute cause of your symptoms other than the timing of your you taking your amitriptyline. It is thought that your amitriptyline may be causing your significant anxiety, panic attacks and chest pain. Please do not take any more of this until you talk to your prescribing physician. Thank you for choosing [facility] for your healthcare needs today. Please realize that you were seen in the emergency department and that we are providing you with an emergency medical screening exam and this may not be a complete and all exclusive of all testing and/or medical workup we may need to determine your element or severity of your illness. It is very important that you follow-up as instructed with your primary care provider or specialist for the additional evaluation and to discuss your medical treatment plan. You may return to the emergency department should you have concerns or if your condition changes or worsens in any way. Coding Level of Care Code ED Assistant Foreman for Ej Ceja
[2024-01-15 20:06] VITALS: BP 128/86; PULSE 64; RESP 15; O2SAT 94
[2024-01-15 20:06] LABS: Basophils # 0.1 10^3/uL (0.0-0.1); Basophils % 0.6 %; Eosinophils # 0.3 10^3/uL (0.0-0.8); Eosinophils % 3.2 %; Hematocrit 38.5 % (36-47); Lymphocytes # 1.9 10^3/uL (0.8-4.8); Lymphocytes % 23.2 %; Mean Corpuscular HGB Conc 32.7 g/dL (30-55); Mean Corpuscular Volume 82.4 fl (85-98); Mean Platelet Volume 9.9 fL (7.4-10.4); Monocytes # 0.7 10^3/uL (0.2-0.9); Monocytes % 8.4 %; Neutrophils # 5.28 10^3/uL (1.8-7.7); Neutrophils % 64.4 %; Nucleated Red Blood Cells % 0 %; Platelet Count 339 10^3/cmm (157-399); Red Blood Count 4.67 10^6/uL (3.85-5.65); Red Cell Distribution Width 13.7 % (12.1-15.1)
[2024-01-15 20:28] LABS: Troponin(5th) Baseline 8 ng/L (0-10)
[2024-01-15 20:30] LABS: Alanine Aminotransferase 16 U/L (0-33); Albumin Level 4.5 g/dL (3.5-5.2); Alkaline Phosphatase 99 U/L (35-105); Anion Gap 17.3 (5-19); Aspartate Amino Transferase 13 U/L (0-32); Blood Urea Nitrogen 14 mg/dL (8-23); Calcium 9.8 mg/dL (8.5-10.5); Carbon Dioxide 25 mmol/L (22-29); Chloride 100 mmol/L (98-107); Creatinine Clr Calc Pharmacy 67.0248; Globulin 2.5 g/dL (1.3-4.6); Glomerular Filtration Rate 83.7 mL/min (90-130); Glucose 131 mg/dL (65-115); Osmolality Calculated 290 mOsm/kg (285-295); Potassium 3.3 mmol/L (3.5-5.1); Sodium 139 mmol/L (136-145); Total Bilirubin 0.3 mg/dL (0.15-1.2)
[2024-01-15 20:33] VITALS: BP 117/71; PULSE 71; RESP 14; O2SAT 95
[2024-01-15 21:00] LABS: Add Urine Microscopic? NO; Bilirubin Urine Neg (Negative); Blood Urine Neg (Negative); Glucose Urine UA Norm (Normal); Ketones Urine Negative (Negative); Leukocyte Esterase Urine Negative (Negative); Nitrate Urine Negative (Negative); Protein Urine Neg (Negative); Urine Appearance Clear (CLEAR); Urine Color Yellow (Yellow); Urobilinogen Urine Neg (Negative); pH Urine 7 (5-7)
[2024-01-15 21:01] LABS: Charge for UA Resulting for Rev; HCG Qualitative Urine. Negative (Negative)
[2024-01-15 21:32] VITALS: BP 115/81; PULSE 69; RESP 16; O2SAT 97
== END 2024-01-15 21:44 | disposition home or self-care (01) ==
PROVIDERS: Emergency Provider Emergency Medicine; PCP Hospitalist
DX: R07.89 Other chest pain (principal); F41.9 Anxiety disorder, unspecified; T43.015A Adverse effect of tricyclic antidepressants, initial encounter; Z79.82 Long term (current) use of aspirin; I10 Essential (primary) hypertension
CPT/HCPCS: 36415; 71045; 80053; 81003; 81025; 84484; 85025; 93005; 99285

== ENCOUNTER 2024-01-30 16:24 | Emergency (ER) | payer MEDICARE, SELFPAY ==
[2024-01-30 16:35] VITALS: BP 109/70; PULSE 79; RESP 16; TEMP 36.7; O2SAT 97; BMI 27.6
[2024-01-30 16:45] LABS: Basophils # 0.1 10^3/uL (0.0-0.1); Basophils % 0.7 %; Eosinophils # 0.2 10^3/uL (0.0-0.8); Eosinophils % 2.9 %; Hematocrit 41.7 % (36-47); Lymphocytes # 2.2 10^3/uL (0.8-4.8); Lymphocytes % 30.1 %; Mean Corpuscular HGB Conc 32.4 g/dL (30-55); Mean Corpuscular Hemoglobin 27.2 pg (27-33); Mean Corpuscular Volume 83.9 fl (85-98); Mean Platelet Volume 10.1 fL (7.4-10.4); Monocytes # 0.7 10^3/uL (0.2-0.9); Monocytes % 10.1 %; Neutrophils # 4.06 10^3/uL (1.8-7.7); Neutrophils % 56.1 %; Nucleated Red Blood Cells % 0 %; Platelet Count 351 10^3/cmm (157-399); Red Blood Count 4.97 10^6/uL (3.85-5.65); Red Cell Distribution Width 13.5 % (12.1-15.1); White Blood Count 7.24 10^3/uL (3.29-11.43)
--- NOTE | 2024-01-30 16:57 | CTR_ITS ---
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 Radiation optimization: All CT scans at this facility use at least one of these dose optimization techniques: automated exposure control; mA and/or kV adjustment per patient size (includes targeted exams where dose is matched to clinical indication); or iterative reconstruction. COMPARISON: CT abdomen pelvis w con* [id number] 07/26/2023 1:50 PM RADIATION DOSE METRICS: Total DLP (mGy-cm): 597 FINDINGS: Liver: Normal. No mass. Gallbladder and biliary ducts: Normal. No calcified stones. No ductal dilation. Pancreas: Calcification in the pancreatic head is consistent with chronic pancreatitis change. There is a 19 mm cystic lesion off the tail of the pancreas. This cannot be optimally evaluated without IV contrast. Mild pancreatic atrophy. Spleen: Normal. No splenomegaly. Adrenal glands: Normal. No mass. Kidneys and ureters: Normal. No hydronephrosis. Stomach and bowel: Colonic constipation is present. There is diverticulosis of the colon without evidence of diverticulitis. Appendix: There has been an appendectomy. Intraperitoneal space: Unremarkable. No free air. No significant fluid collection. Vasculature: Unremarkable. No abdominal aortic aneurysm. Lymph nodes: Unremarkable. No enlarged lymph nodes. Urinary bladder: Unremarkable as visualized. Reproductive: The uterus is not visualized, consistent with hysterectomy. Bones/joints: Unremarkable. No acute fracture. Soft tissues: Unremarkable. CT/CT abdomen pelvis con [id number] IMPRESSION: 1. Calcification in the pancreatic head is consistent with chronic pancreatitis change. 2. There is a 19 mm cystic lesion off the tail of the pancreas. This cannot be optimally evaluated without IV contrast. 3. Colonic constipation is present.
--- NOTE | 2024-01-30 16:59 | W.ED.ABDPA2 ---
HPI - Abdominal Pain General: Chief Complaint: Abdominal Pain Stated Complaint: abd pain, can't go to the bathroom Time Seen by Provider: 01/30/24 16:43 Source: patient Mode of arrival: ambulatory Limitations: no limitations History of Present Illness: 68-year-old female states she has had some abdominal pain and felt distended over the last 4 days and has not had any bowel movements. She has been eating a liquid diet is concerned she may have a small bowel obstruction. She denies any severe pain denies any vomiting denies any fevers denies any worsening improving factors. Associated Symptoms: Reports constipation; Denies chills, diarrhea, dysuria, fever(s), nausea and vomiting Review of Systems Const: Denies: fever(s), chills, body aches or change in appetite ENMT: Denies: throat pain or dental pain Card: Denies: chest pain Resp: Denies: dyspnea GI: Reports: abdominal pain and constipation; Denies: nausea, vomiting or diarrhea : Denies: dysuria Musc: Denies: neck pain or back pain Skin/Breast: Denies: rash Neuro: Denies: headache(s) PFSH ED PFSH: Medical History Viral syndrome URI with cough and congestion Hypertension Acute rheumatoid arthritis Chronic UTI (urinary tract infection) Vertigo Surgical History History of elbow surgery closed reduction of left elbow History of appendectomy History of abdominal hysterectomy History of tubal ligation History of sinus surgery septum surgery and turbinate reduction History of thyroidectomy Family History Father Lung disease rheumatoid arthritis related Mother Alzheimer disease Son Autoimmune disease causing clotting problems, vascular Daughter Raynaud disease Rheumatoid arteritis Social History Smoking and tobacco/nicotine status: never used tobacco/nicotine Alcohol intake: current Alcohol intake frequency: holidays/special occasions only Substance/Drug Use: never Physical Exam Const: COMMON NORMALS: no acute distress, patient oriented x3 and healthy appearing HENMT: COMMON NORMALS: normocephalic and atraumatic HEAD & SCALP: normocephalic and atraumatic Neck/C-Spine: COMMON NORMALS: full ROM and supple Chest: COMMONS NORMALS: normal inspection of the chest Resp: COMMON NORMALS: normal respiratory effort Cardio: COMMON NORMALS: regular rate, regular rhythm and No murmurs present (Cardio) RATE: regular rate RHYTHM: regular rhythm GI: COMMON NORMALS: Normal to inspection, nondistended, normoactive bowel sounds present, Soft to palpation, non-tender and no masses PALPATION: Yes Soft to palpation Extremity: COMMON NORMALS: normal to inspection and full ROM Neuro: COMMON NORMALS: patient oriented x3, moves all extremities and no focal motor deficits Psych: COMMON NORMALS: mental status grossly normal, Normal thought process present and cooperative THOUGHT PROCESS: Normal thought process present Skin: COMMON NORMALS: no rashes or lesions noted and no wounds GENERAL SKIN EXAM: no rashes or lesions noted Course Vital Signs: Vital signs: Vital Signs Temperature 98.0 F 01/30/24 16:35 Pulse Rate 75 01/30/24 18:53 Respiratory Rate 16 01/30/24 16:35 Blood Pressure 121/74 01/30/24 18:53 Pulse Oximetry 96 01/30/24 18:53 Oxygen Delivery Me thod Room Air 01/30/24 18:53 MDM - Abdominal Pain Medical Decision Making Patient presents here with some abdominal pain CT shows constipation no signs of bowel obstruction patient stable for discharge we will give her lactulose she is to take MiraLAX at home follow-up with her PCP return if worsening she understands agrees to plan. Medical Records I reviewed the patient's medical records. Lab Data I reviewed the patient's lab results. 01/30/24 16:25 01/30/24 16:25 Labs/Radiology: Radiology Impressions Abdomen/Pelvis CT 01/30/24 16:57 IMPRESSION: 1. Calcification in the pancreatic head is consistent with chronic pancreatitis change. 2. There is a 19 mm cystic lesion off the tail of the pancreas. This cannot be optimally evaluated without IV contrast. 3. Colonic constipation is present. Laboratory Results WBC 7.24 10^3/uL (3.29-11.43) 01/30/24 16:25 RBC 4.97 10^6/uL (3.85-5.65) 01/30/24 16:25 Hgb 13.50 g/dL (11.27-16.99) 01/30/24 16:25 Hct 41.7 % (36-47) 01/30/24 16:25 MCV 83.9 fl (85-98) L 01/30/24 16:25 MCH 27.2 pg (27-33) 01/30/24 16:25 MCHC 32.4 g/dL (30-55) 01/30/24 16:25 RDW 13.5 % (12.1-15.1) 01/30/24 16:25 Plt Count 351 10^3/cmm (157-399) 01/30/24 16:25 MPV 10.1 fL (7.4-10.4) 01/30/24 16:25 Neut % (Auto) 56.1 % 01/30/24 16:25 Lymph % (Auto) 30.1 % 01/30/24 16:25 [place] % (Auto) 10.1 % 01/30/24 16:25 Eos % (Auto) 2.9 % 01/30/24 16:25 Baso % (Auto) 0.7 % 01/30/24 16:25 Neut # (Auto) 4.06 10^3/uL (1.8-7.7) 01/30/24 16:25 Lymph # (Auto) 2.2 10^3/uL (0.8-4.8) 01/30/24 16:25 [place] # (Auto) 0.7 10^3/uL (0.2-0.9) 01/30/24 16:25 Eos # (Auto) 0.2 10^3/uL (0.0-0.8) 01/30/24 16:25 Baso # (Auto) 0.1 10^3/uL (0.0-0.1) 01/30/24 16:25 Nucleated RBC % (auto) 0 % 01/30/24 16:25 Nucleated RBCs # 0.0 /100WBC 01/30/24 16:25 Sodium 139 mmol/L (136-145) 01/30/24 16:25 Potassium 3.4 mmol/L (3.5-5.1) L 01/30/24 16:25 Chloride 100 mmol/L (98-107) 01/30/24 16:25 Carbon Dioxide 25 mmol/L (22-29) 01/30/24 16:25 Anion Gap 17.4 (5-19) 01/30/24 16:25 BUN 14 mg/dL (8-23) 01/30/24 16:25 Creatinine 0.8 mg/dL (0.5-0.9) 01/30/24 16:25 GFR Calculation 71.8 mL/min (90-130) L 01/30/24 16:25 Glucose 88 mg/dL (65-115) 01/30/24 16:25 Calculated Osmolality 288 mOsm/kg (285-295) 01/30/24 16:25 Calcium 9.9 mg/dL (8.5-10.5) 01/30/24 16:25 Total Bilirubin 0.5 mg/dL (0.15-1.2) 01/30/24 16:25 AST 15 U/L (0-32) 01/30/24 16:25 ALT 17 U/L (0-33) 01/30/24 16:25 Alkaline Phosphatase 104 U/L (35-105) 01/30/24 16:25 Total Protein 7.5 g/dL (6.6-8.7) 01/30/24 16:25 Albumin 4.4 g/dL (3.5-5.2) 01/30/24 16:25 Globulin 3.1 g/dL (1.3-4.6) 01/30/24 16:25 Lipase 14 U/L (13-60) 01/30/24 16:25 Urine Color Dark yellow (Yellow) 01/30/24 17:55 Urine Appearance Clear (CLEAR) 01/30/24 17:55 Urine pH 6 (5-7) 01/30/24 17:55 Ur Specific [place] 1.015 (1.005-1.030) 01/30/24 17:55 Urine Protein Neg (Negative) 01/30/24 17:55 Urine Glucose (UA) Norm (Normal) 01/30/24 17:55 Urine Ketones 1+ (Negative) H 01/30/24 17:55 Urine Blood Neg (Negative) 01/30/24 17:55 Urine Nitrate Negative (Negative) 01/30/24 17:55 Urine Bilirubin Neg (Negative) 01/30/24 17:55 Urine Urobilinogen Norm mg/dL (Negative) 01/30/24 17:55 Ur Leukocyte Esterase Negative (Negative) 01/30/24 17:55 All radiology interpretation(s) finalized by discharge Discharge Plan Discharge Patient Disposition: Home Clinical Impression: Constipation Condition: Stable Prescriptions: No Action nitrofurantoin monohyd/m-cryst [Macrobid] 100 mg capsule 100 mg PO BID Rx Instructions: must administer with a meal/food triamcinolone acetonide 0.1 % cream 1 applic topical BID Qty: 80 0RF levothyroxine 88 mcg capsule 88 mcg PO DAILY potassium chloride 20 mEq tablet extended release 20 meq PO DAILY propranolol 60 mg tablet 60 mg PO DAILY Rx Instructions: pt states she takes one tab on tue,tue, and tuesday rosuvastatin 5 mg tablet 5 mg PO DAILY Rx Instructions: pt states she takes one tab on ,,tue and tuesday [id number] 47-85-103-40 mg capsule 1 cap PO Q4H MDD 6 tabs PRN (Reason: Headache) Rx Instructions: pt states she hasnt taken any for about 4-5 days albuterol sulfate [ProAir HFA] 90 mcg/actuation HFA aerosol inhaler 2 puff INHALATION Q6H PRN (Reason: Shortness Of Breath) clarithromycin 500 mg tablet 500 mg PO BID nitrofurantoin macrocrystal 100 mg capsule 100 mg PO DAILY Rx Instructions: must administer with a meal/food Flintstones Multivitamin Tablet,Chewable 1 tab PO DAILY Aspir-81 81 mg Tablet,Delayed Release (Dr/Ec) 81 mg PO DAILY Rx Instructions: pt states she only takes when she thinks she needs them hydrochlorothiazide 25 mg Tablet 25 mg PO DAILY Rx Instructions: pt states she takes 12.5mg daily losartan 100 mg Tablet 100 mg PO DAILY Rx Instructions: pt states she takes 50mg po daily Cipro 500 mg tablet 500 mg PO Q12H Qty: 14 0RF Discharge Orders: Discharge ED (Routine); Ordered 01/30/24 Ordered By: Timbo Walker Referrals: Gideon Bonner MD [Primary Care Provider] - 4-7 days Discharge Diet: Advance as tolerated Discharge Activity: Resume usual activity Patient Instructions: Constipation (ED) Coding Level of Care Code ED [employer] for [employer]
[2024-01-30 17:14] LABS: Alanine Aminotransferase 17 U/L (0-33); Albumin Level 4.4 g/dL (3.5-5.2); Alkaline Phosphatase 104 U/L (35-105); Anion Gap 17.4 (5-19); Aspartate Amino Transferase 15 U/L (0-32); Blood Urea Nitrogen 14 mg/dL (8-23); Calcium 9.9 mg/dL (8.5-10.5); Carbon Dioxide 25 mmol/L (22-29); Chloride 100 mmol/L (98-107); Creatinine Clr Calc Pharmacy 65.2413; Globulin 3.1 g/dL (1.3-4.6); Glomerular Filtration Rate 71.8 mL/min (90-130); Glucose 88 mg/dL (65-115); Lipase 14 U/L (13-60); Osmolality Calculated 288 mOsm/kg (285-295); Potassium 3.4 mmol/L (3.5-5.1); Sodium 139 mmol/L (136-145); Total Bilirubin 0.5 mg/dL (0.15-1.2); Total Protein 7.5 g/dL (6.6-8.7)
[2024-01-30 18:53] VITALS: BP 121/74; PULSE 75; O2SAT 96
[2024-01-30 19:05] LABS: Add Urine Microscopic? NO; Charge for UA Resulting for Rev
[2024-01-30 19:13] LABS: Bilirubin Urine Neg (Negative); Blood Urine Neg (Negative); Glucose Urine UA Norm (Normal); Ketones Urine 1+ (Negative); Leukocyte Esterase Urine Negative (Negative); Nitrate Urine Negative (Negative); Protein Urine Neg (Negative); Specific Gravity, Urine 1.015 (1.005-1.030); Urine Appearance Clear (CLEAR); Urine Color Dark Yellow (Yellow); Urobilinogen Urine Norm (Negative); pH Urine 6 (5-7)
[2024-01-30 21:30] VITALS: BP 116/83; PULSE 80; RESP 16; O2SAT 97
[2024-01-30] MEDS: lactulose oral liq 20 gm/30 mL UDC 30 GM PO (21:41)
== END 2024-01-30 21:54 | disposition home or self-care (01) ==
PROVIDERS: Emergency Provider Emergency Medicine; PCP Hospitalist
DX: K59.00 Constipation, unspecified (principal); Z79.82 Long term (current) use of aspirin; I10 Essential (primary) hypertension
CPT/HCPCS: 36415; 74176; 80053; 81003; 83690; 85025; 99284